=== PATIENT | male | born 1940 | race Caucasian/White ===

== ENCOUNTER → 2017-12-15 | Outpatient (CLI) | payer OTHER ==
[~2017-12-15] MED LIST: ALBU90OI6 INH; AMLO5 PO; ASPI81CH PO; Adult Low Dose81 MG PO; FLUT44OIA INH; HYDCHL25 PO; LEVCAR2510 PO; PRAV20 PO; TIOT18 INH
== END ==
LOC: LAB 17:00 → LAB SHORT 17:00
DX: S81.802A Unspecified open wound, left lower leg, initial encounter (principal)
CPT/HCPCS: 87070; 87075; 87077; 87147; 87186; 87205